=== PATIENT | male | born 1990 | race Caucasian/White ===

== ENCOUNTER 2018-12-23 16:50 | Emergency (ER) | payer MEDICAID, OTHER ==
[2018-12-23] MEDS ORDERED: KETOROLAC 30 MG/1 ML SDV IVP ONE (17:01)
[2018-12-23] MEDS ORDERED: fentaNYL 100 MCG/2 ML INJ IVP ONE (17:01)
--- NOTE | 2018-12-23 17:20 | EDPHY ---
H & P Stated Complaint: Right UE injury ~ 30 min [employer], shoulder ,elbow Time Seen by Provider: 12/23/18 17:02 HPI/ROS: 28 yo M presents c/o right shoulder and clavicle pain , states he was playing soccer and stepped right on the ball, and fell injuring his arm, he admits he had several shots of alcohol prior to the soccer. Review of systems as per hpi General no fever no chills no weakness HEENT no eye pain no eye discharge. No eye redness, no sore throat Respiratory no cough, no shortness of breath Cardiac no chest pain, no peripheral edema GI no abdominal pain, no diarrhea, no constipation, no nausea, no vomiting no flank pain, no hematuria, no dysuria Musculoskeletal no myalgias, pos joint pain Heme no easy bruising, no easy bleeding Endo no polyuria, no polydipsia Skin no rashes, no pruritus Neuro no syncope, no dizziness, no headaches Psych is no suicidal ideation, no homicidal ideation Source: Patient Exam Limitations: Intoxication - Personal History Current Tetanus Diphtheria and Acellular Pertussis (TDAP): Yes - Medical/Surgical History Hx Asthma: No Hx Chronic Respiratory Disease: No Hx Diabetes: No Hx Cardiac Disease: No Hx Renal Disease: No Hx Cirrhosis: No Hx Alcoholism: No Hx HIV/AIDS: No Hx Splenectomy or Spleen Trauma: No Other PMH: denies - Family History Significant Family History: No pertinent family hx - Social History Smoking Status: Current every day smoker Alcohol Use: Heavy - Physical Exam Exam: 28 yo M alert and oriented, in moderate distress secondary to right shoulder injury at,nc eomi, anicteric neck supple ,no posterior midline tenderness lungs cta bilat heart rrr abd nabs soft nt ext no cce except right upper extremity distal clavicle protuberant, skin not tense, no swelling of elbow/wrist/hand good distal pulses, cap refill Constitutional: Initial Vital Signs Temperature (C) 36.4 C 12/23/18 16:57 Heart Rate 77 12/23/18 16:57 Respiratory Rate 16 12/23/18 16:57 Blood Pressure 125/78 H 12/23/18 16:57 O2 Sat (%) 99 12/23/18 16:57 O2 Delivery Mode Room Air Allergies/Adverse Reactions: No Known Allergies Allergy (Verified 12/23/18 16:57) Home Medications: Medication Instructions Recorded Sulfamethox/Tmp 800/160 mg 1 tab PO BID 10 Days tab 04/24/15 [Bactrim Ds (RX)] oxyCODONE/APAP 5/325 [Percocet 1 - 2 tab PO Q6PRN PRN #25 tab 04/24/15 5/325 (*)] Amoxicillin/Clavulanate Pot 875 mg PO BID 10 Days tab 04/26/15 [Augmentin 875 MG TAB (RX)] oxyCODONE/APAP 5/325 [Percocet 1 - 2 tab PO Q6PRN PRN #25 tab 04/26/15 5/325 (*)] oxyCODONE/APAP 5/325 [Percocet 1 - 2 tab PO Q8H PRN #30 tab 12/23/18 5/325 (*)] Medical Decision Making - Diagnostics Imaging Results: Imaging Impressions Clavicle X-Ray 12/23/18 16:57 Impression: Probable AC joint separation with possible posterior displacement of the clavicle. No evidence for fracture. Shoulder X-Ray 12/23/18 16:57 Impression: Probable AC joint separation with possible posterior displacement of the clavicle. No evidence for fracture. ED Course/Re-evaluation: Pt seen and evaluated for right arm injury. IV established Pt given Tordol 30 mg IVP and Fentanyl 25 mcg IVP Given an additional Morphine 4 mg IVP Pt sent for xray- c/w type 3 ac separation Imp AC separation Plan dc home rx percocet f/u ortho Differential Diagnosis: Differential diagnosis considered but not limited to: Acromioclavicular separation, clavicle fracture, humeral fracture, shoulder dislocation - Data Points Medications Given: Discontinued Medications Fentanyl (Sublimaze) 25 mcg IVP EDNOW ONE Stop: 12/23/18 17:02 Last Admin: 12/23/18 17:07 Dose: 25 mcg Ketorolac Tromethamine (Toradol) 30 mg IVP EDNOW ONE Stop: 12/23/18 17:02 Last Admin: 12/23/18 17:06 Dose: 30 mg Morphine Sulfate (Morphine) 4 mg IVP EDNOW ONE Stop: 12/23/18 17:43 Last Admin: 12/23/18 17:46 Dose: 4 mg Oxycodone/Acetaminophen (Percocet 5/325mg Prepack#4) 1 btl TAKEHOME EDNOW ONE Stop: 12/23/18 18:24 Last Admin: 12/23/18 18:33 Dose: 1 btl Departure - Departure Disposition: Home, Routine, Self-Care Clinical Impression: Acromioclavicular joint separation, type 3 Condition: Good Instructions: Oxycodone/Acetaminophen (By mouth), Acromioclavicular Separation (ED) Referrals: NONE *PRIMARY CARE P,. [Primary Care Provider] - As per Instructions Arturo Morillo MD [Medical Doctor] - As per Instructions Stand Alone Forms: Work Limited Duty, Statement of Treatment Prescriptions: oxyCODONE/APAP 5/325 [Percocet 5/325 (*)] 1 - 2 tab PO Q8H PRN #30 tab PRN Reason: Pain, Severe
[2018-12-23] MEDS ORDERED: OXYCODONE/APAP 5/325MG PREPACK#4 BTL TAKEHOME ONE (18:23)
[2018-12-23 18:30] VITALS: BP 101/58
== END 2018-12-23 18:47 | disposition home or self-care (01) ==
LOC: CED 16:50
DX: S43.111A Subluxation of right acromioclavicular joint, initial encounter (principal); F10.920 Alcohol use, unspecified with intoxication, uncomplicated; W01.0XXA Fall on same level from slipping, tripping and stumbling without subsequent striking against object, initial encounter; Y93.66 Activity, soccer
CPT/HCPCS: 73000-PO; 73030-PO; 96374-ER; 96375-ER; 99284-ER; J1885; J2270; J3010

== ENCOUNTER → 2018-12-29 | Outpatient (CLI) | payer OTHER | LOC: BMCIMAGING 08:48 | PROVIDERS: ATTEND Physician Assistant | DX: M25.511 Pain in right shoulder (principal) ==